=== PATIENT | male | born 1960 | race Caucasian/White ===

== ENCOUNTER 2018-06-29 17:46 | Inpatient (IN) | payer MEDICAID ==
[~2018-06-29] VITALS: Ht 175.3 cm; Wt 98.9 kg
--- NOTE | ~2018-06-29 | CN ---
PATIENT NAME:MARK HEARN MEDICAL RECORD: [id number] : 62 LOCATION:[facility].2308 ADMIT DATE: 06/29/18 ACCOUNT: [id number] CONSULTING PHYSICIAN: ALESIA CHEATHAM MD REFERRING PHYSICIAN: JOANNA LEUNG MD DATE OF CONSULTATION: 07/01/2018 PSYCHIATRIC CONSULTATION IDENTIFYING DATA: The patient is a 57-year-old and he is admitted to the intensive care unit on a voluntary basis. CHIEF COMPLAINT: None. HISTORY OF PRESENT ILLNESS: The patient got into an argument with some of his family members and tried to kill himself by taking or swallowing 6-7 razor blades. He was then brought to the hospital and admitted, and indeed he did have razor blades present in his abdomen, verified on x-ray. The transportation superintendent was able to retrieve two of them via endoscopy and he has passed several of the others without causing any significant bleeding so far, but apparently he still has one in his intestinal tract. The patient reports numerous depressive symptoms, impulsivity, mood lability, and a very extensive past psychiatric history. He has tried to harm himself many times. He has been hospitalized many times. He is followed on an outpatient basis by the [facility] in [place] and has an established diagnosis of bipolar disorder, for which he takes Seroquel and lithium. He was recently hospitalized at the [facility] in May of this year and underwent a series of ECT treatments. MENTAL STATUS EXAMINATION: The patient is awake; alert; and oriented to person, place, and somewhat to time and situation. His mood is depressed. His affect is constricted. Thought processes are circumstantial. He denies any current thoughts of harming himself, but does so after pausing and contemplating momentarily and then does so in a way that is not very reassuring. He denies that he would seek to harm others and he denies any overt psychotic symptoms. ASSESSMENT: 1. Foreign body ingestion. 2. Bipolar disorder, depressed phase. PLAN: At this time, I recommend inpatient psychiatric treatment. He should be transferred to an acute inpatient psychiatric unit when medically stabilized. His long-term prognosis is guarded. I do not see any evidence of overt psychosis. By way of additional information, the patient has been in the [facility] multiple times and is currently on parole for armed robbery. TRANSINT:[id number] Voice Confirmation ID: [id number] DOCUMENT ID: [id number] CONSULT REPORT [id number] MARK HEARN, ALESIA PACKER at 1333 CC: [id number] DICTATION DATE: 07/01/18 1111 CABLE MACHINE OPERATOR: 07/01/18 1229 ADM IN [place] [id number] [place] [address]
[~2018-06-29 17:46] MED LIST: ATIVAN1 MG PO; CLONAZEPAM2 MG/TAB PO; ED-SPAZ0.125 MG PO; HYDROCODONE-APA1 TAB PO; KLONOPIN1 MG PO; LITHIUM CARBON300 MG PO; MIRALAX17 GM PO; NICODERM C1 PATCH .3 TRANSDERM; PEPCID20 MG PO; PROTONIX40 MG PO; SEROQUEL300 MG PO; ZOFRAN ODT4 MG/UDTAB PO
[2018-06-29 18:17] LABS: APPEARANCE CLEAR (CLEAR); BILIRUBIN NEGATIVE (NEGATIVE); COLOR YELLOW (YELLOW); GLUCOSE NEGATIVE (NEGATIVE); KETONE NEGATIVE (NEGATIVE); NITRITE NEGATIVE (NEGATIVE); PROTEIN NEGATIVE (NEGATIVE); UROBILINOGEN NORMAL (NORMAL)
[2018-06-29 18:22] LABS: UDS - AMPHET NEGATIVE QUAL (NEGATIVE); UDS - BARB NEGATIVE QUAL (NEGATIVE); UDS - BENZO POSITIVE QUAL (NEGATIVE); UDS - COCAINE NEGATIVE QUAL (NEGATIVE); UDS - OPIATE NEGATIVE QUAL (NEGATIVE); UDS - PCP NEGATIVE QUAL (NEGATIVE); UDS - THC NEGATIVE QUAL (NEGATIVE)
[2018-06-29 18:42] LABS: BASOPHILS 0.9 % (0-2); EOSINOPHILS 6.1 % (0-7); HEMATOCRIT 41.3 % (42.0-54.0); HEMOGLOBIN 13.1 g/dL (13.5-17.5); IMMATURE GRANULOCYTES 0.5 % (0-5); LYMPHOCYTES 29.5 % (15-50); MCH 28.4 pg (26.0-34.0); MCHC 31.7 g/dL (31.0-37.0); MCV 89.6 fL (80.0-100.0); MEAN PLATELET VOLUME 9.5 fL (7.4-10.4); MONOCYTES 7.9 % (2-11); NEUTROPHILS 55.1 % (40-80); PLATELET COUNT 208 10x3/uL (130-400); RBC 4.61 10x6/uL (4.20-6.10); RDW 13.4 % (11.5-14.5); WBC 7.6 10x3/uL (4.8-10.8)
[2018-06-29 18:55] LABS: ALBUMIN 3.4 g/dL (3.4-5.0); ANION GAP 12.4 mmol/L (8-16); BILIRUBIN - TOTAL 0.16 mg/dL (0.2-1.3); CALCIUM 8.6 mg/dL (8.5-10.1); CARBON DIOXIDE 24.9 mmol/L (21.0-32.0); CREATININE - SERUM 1.1 mg/dL (0.6-1.3); POTASSIUM - SERUM 4.3 mmol/L (3.5-5.1); PROTEIN - SERUM 7.3 g/dL (6.4-8.2)
[2018-06-29 19:35] LABS: APTT 27.8 SECONDS (22.8-39.4); INR 0.97 (0.85-1.17); PROTIME 12.5 SECONDS (11.6-15.0)
[2018-06-29 22:00] VITALS: BP 115/69
[2018-06-29 22:09] VITALS: BP 114/60; BMI 31.7
[2018-06-29 23:00] VITALS: BP 141/94
[2018-06-29 23:32] LABS: HEMATOCRIT 39.8 % (42.0-54.0); HEMOGLOBIN 12.8 g/dL (13.5-17.5)
[2018-06-30] VITALS (14 sets, daily range): BP systolic 125–161; BP diastolic 78–99
[2018-06-30 07:32] LABS: BASOPHILS 0.4 % (0-2); EOSINOPHILS 3.3 % (0-7); HEMATOCRIT 37.2 % (42.0-54.0); HEMOGLOBIN 12.1 g/dL (13.5-17.5); IMMATURE GRANULOCYTES 0.6 % (0-5); LYMPHOCYTES 17.8 % (15-50); MCH 28.3 pg (26.0-34.0); MCHC 32.5 g/dL (31.0-37.0); MEAN PLATELET VOLUME 9.9 fL (7.4-10.4); MONOCYTES 8.6 % (2-11); NEUTROPHILS 69.3 % (40-80); PLATELET COUNT 181 10x3/uL (130-400); RBC 4.27 10x6/uL (4.20-6.10); RDW 13.5 % (11.5-14.5)
[2018-06-30 07:34] LABS: MCV 87.1 fL (80.0-100.0); WBC 10.4 10x3/uL (4.8-10.8)
[2018-06-30 07:42] LABS: CALC OSMOLALITY 280 mosm/kg (275-300); CALCIUM 7.8 mg/dL (8.5-10.1); CARBON DIOXIDE 25.4 mmol/L (21.0-32.0); CHLORIDE - SERUM 108 mmol/L (98-107); GLUCOSE 108 mg/dL (74-106); POTASSIUM - SERUM 4.4 mmol/L (3.5-5.1); SODIUM 141 mmol/L (136-145); UREA NITROGEN 11 mg/dL (7-18)
[2018-06-30 07:44] LABS: CREATININE - SERUM 0.8 mg/dL (0.6-1.3); eGFR NON AFRICAN AMERICAN > 90 mL/min (90-120)
[2018-07-01] MEDS ORDERED: PROPRANOLOL HCL20 MG PO (01:30)
[2018-07-01] MEDS ORDERED: PROTONIX20 MG PO (01:30)
[2018-07-01] MEDS ORDERED: REMERON15 MG/UDTA PO (01:31)
[2018-07-01] MEDS ORDERED: AMBIEN5 MG PO (01:31)
[2018-07-01] MEDS ORDERED: PRINIVIL20 MG PO (01:32)
[2018-07-01 07:00] VITALS: BP 143/101
[2018-07-01 09:53] LABS: BASOPHILS 0.4 % (0-2); EOSINOPHILS 3.8 % (0-7); HEMATOCRIT 38.4 % (42.0-54.0); HEMOGLOBIN 12.3 g/dL (13.5-17.5); IMMATURE GRANULOCYTES 0.5 % (0-5); LYMPHOCYTES 22.3 % (15-50); MCH 28.6 pg (26.0-34.0); MCV 89.3 fL (80.0-100.0); MEAN PLATELET VOLUME 9.7 fL (7.4-10.4); MONOCYTES 7.6 % (2-11); NEUTROPHILS 65.4 % (40-80); PLATELET COUNT 165 10x3/uL (130-400); RDW 13.5 % (11.5-14.5); WBC 7.4 10x3/uL (4.8-10.8)
[2018-07-01 10:00] LABS: CALC OSMOLALITY 280 mosm/kg (275-300); CARBON DIOXIDE 26.8 mmol/L (21.0-32.0); CHLORIDE - SERUM 108 mmol/L (98-107); CREATININE - SERUM 0.9 mg/dL (0.6-1.3); GLUCOSE 108 mg/dL (74-106); POTASSIUM - SERUM 4.1 mmol/L (3.5-5.1); SODIUM 142 mmol/L (136-145); UREA NITROGEN 5 mg/dL (7-18); eGFR NON AFRICAN AMERICAN > 90 mL/min (90-120)
[2018-07-01 11:43] VITALS: BP 165/100
[2018-07-01 18:45] VITALS: BP 145/93
[2018-07-01 19:00] VITALS: BP 147/98
[2018-07-01 23:00] VITALS: BP 153/100
[2018-07-02] VITALS (7 sets, daily range): BP systolic 123–153; BP diastolic 74–97; Ht 175.3 cm; Wt 98.9 kg
[2018-07-02 03:46] LABS: BASOPHILS 0.4 % (0-2); EOSINOPHILS 4.8 % (0-7); HEMATOCRIT 37.4 % (42.0-54.0); HEMOGLOBIN 12.1 g/dL (13.5-17.5); IMMATURE GRANULOCYTES 0.3 % (0-5); LYMPHOCYTES 23.3 % (15-50); MCH 28.2 pg (26.0-34.0); MCHC 32.4 g/dL (31.0-37.0); MEAN PLATELET VOLUME 9.3 fL (7.4-10.4); MONOCYTES 9.6 % (2-11); NEUTROPHILS 61.6 % (40-80); RBC 4.29 10x6/uL (4.20-6.10); RDW 13.4 % (11.5-14.5); WBC 7.9 10x3/uL (4.8-10.8)
[2018-07-02 03:48] LABS: MCV 87.2 fL (80.0-100.0); PLATELET COUNT 200 10x3/uL (130-400)
[2018-07-02 04:04] LABS: CALC OSMOLALITY 275 mosm/kg (275-300); CALCIUM 8.1 mg/dL (8.5-10.1); CARBON DIOXIDE 24.2 mmol/L (21.0-32.0); CHLORIDE - SERUM 107 mmol/L (98-107); CREATININE - SERUM 0.9 mg/dL (0.6-1.3); GLUCOSE 107 mg/dL (74-106); SODIUM 140 mmol/L (136-145); UREA NITROGEN 4 mg/dL (7-18); eGFR NON AFRICAN AMERICAN > 90 mL/min (90-120)
[2018-07-03] VITALS (9 sets, daily range): BP systolic 124–160; BP diastolic 78–109
[2018-07-03 04:32] LABS: BASOPHILS 0.3 % (0-2); EOSINOPHILS 7.3 % (0-7); HEMATOCRIT 35.4 % (42.0-54.0); HEMOGLOBIN 11.5 g/dL (13.5-17.5); IMMATURE GRANULOCYTES 0.5 % (0-5); LYMPHOCYTES 32.4 % (15-50); MCH 28.5 pg (26.0-34.0); MCHC 32.5 g/dL (31.0-37.0); MCV 87.6 fL (80.0-100.0); MEAN PLATELET VOLUME 9.5 fL (7.4-10.4); MONOCYTES 13.4 % (2-11); NEUTROPHILS 46.1 % (40-80); PLATELET COUNT 183 10x3/uL (130-400); RBC 4.04 10x6/uL (4.20-6.10); RDW 13.5 % (11.5-14.5)
[2018-07-03 05:03] LABS: ANION GAP 9.2 mmol/L (8-16); CALCIUM 8.2 mg/dL (8.5-10.1); CARBON DIOXIDE 25.5 mmol/L (21.0-32.0); CREATININE - SERUM 1.1 mg/dL (0.6-1.3); POTASSIUM - SERUM 3.7 mmol/L (3.5-5.1)
[2018-07-03 07:32] LABS: HEPATITIS C ANTIBODY >11.0 (0.0-0.9)
[2018-07-04 04:24] VITALS: BP 140/85
[2018-07-04 07:00] VITALS: BP 129/84
[2018-07-04 11:00] VITALS: BP 126/83
[2018-07-04 15:00] VITALS: BP 126/83
[2018-07-04 19:00] VITALS: BP 161/101
[2018-07-04 23:00] VITALS: BP 150/96
[2018-07-05] VITALS (8 sets, daily range): BP systolic 99–157; BP diastolic 58–107
[2018-07-06 03:00] VITALS: BP 126/84
[2018-07-06 07:00] VITALS: BP 120/90
[2018-07-06 09:00] VITALS: BP 120/90
== END 2018-07-06 16:36 | disposition left against medical advice (07) | DRG 395 ==
LOC: D.ER 17:46 → D.EDHOLD 19:12 → D.ICU 19:12 → D.CVICU 19:12 → OBSVTIME 22:00 → D.ICU 06-30 15:35
PROVIDERS: Family Medicine; Internal Medicine Gastroenterology; Internal Medicine Nephrology
PROC: 0DC68ZZ Extirpation of Matter from Stomach, Via Natural or Artificial Opening Endoscopic (ICD-10-PCS; principal; 2018-06-29 17:30)
DX: T18.2XXA Foreign body in stomach, initial encounter (principal); T14.91XA Suicide attempt, initial encounter; X83.8XXA Intentional self-harm by other specified means, initial encounter; K44.9 Diaphragmatic hernia without obstruction or gangrene; F31.9 Bipolar disorder, unspecified; I10 Essential (primary) hypertension

== ENCOUNTER 2018-11-30 15:34 | Inpatient (IN) | payer MEDICAID ==
[~2018-11-30] VITALS: Ht 175.3 cm; Wt 89.1 kg
[~2018-11-30 15:34] MED LIST changes: +AMBIEN5 MG PO; +PRINIVIL20 MG PO; +PROPRANOLOL HCL20 MG PO; +PROTONIX20 MG PO; +REMERON15 MG/UDTA PO
[2018-11-30 16:25] LABS: BASOPHILS 0.9 % (0-2); EOSINOPHILS 4.5 % (0-7); HEMATOCRIT 40.1 % (42.0-54.0); HEMOGLOBIN 12.7 g/dL (13.5-17.5); IMMATURE GRANULOCYTES 0.5 % (0-5); LYMPHOCYTES 30.4 % (15-50); MCH 25.7 pg (26.0-34.0); MCHC 31.7 g/dL (31.0-37.0); MCV 81.2 fL (80.0-100.0); MONOCYTES 9.5 % (2-11); NEUTROPHILS 54.2 % (40-80); PLATELET COUNT 206 10x3/uL (130-400); RBC 4.94 10x6/uL (4.20-6.10); RDW 14.4 % (11.5-14.5); WBC 6.6 10x3/uL (4.8-10.8)
[2018-11-30 16:57] LABS: ALBUMIN 3.9 g/dL (3.4-5.0); ANION GAP 16.5 mmol/L (8-16); BILIRUBIN - TOTAL 0.35 mg/dL (0.2-1.3); CALCIUM 9.5 mg/dL (8.5-10.1); CARBON DIOXIDE 22.7 mmol/L (21.0-32.0); CREATININE - SERUM 1.1 mg/dL (0.6-1.3); MAGNESIUM - SERUM 1.8 mg/dL (1.8-2.4); POTASSIUM - SERUM 4.2 mmol/L (3.5-5.1); PROTEIN - SERUM 8.2 g/dL (6.4-8.2)
[2018-11-30 17:02] LABS: UDS - AMPHET NEGATIVE QUAL (NEGATIVE); UDS - BARB POSITIVE QUAL (NEGATIVE); UDS - BENZO NEGATIVE QUAL (NEGATIVE); UDS - COCAINE NEGATIVE QUAL (NEGATIVE); UDS - OPIATE NEGATIVE QUAL (NEGATIVE); UDS - PCP NEGATIVE QUAL (NEGATIVE); UDS - THC NEGATIVE QUAL (NEGATIVE)
[2018-11-30 17:05] LABS: APPEARANCE CLEAR (CLEAR); BILIRUBIN NEGATIVE (NEGATIVE); COLOR YELLOW (YELLOW); GLUCOSE NEGATIVE (NEGATIVE); KETONE NEGATIVE (NEGATIVE); NITRITE NEGATIVE (NEGATIVE); PROTEIN NEGATIVE (NEGATIVE); SPECIFIC GRAVITY 1.015 (1.005-1.020); UROBILINOGEN NORMAL (NORMAL)
[2018-11-30 20:00] VITALS: BP 125/87
[2018-11-30 20:15] VITALS: BP 125/87
[2018-11-30 21:00] VITALS: BP 129/81
[2018-11-30 22:00] VITALS: BP 121/87
[2018-11-30] MEDS ORDERED: TRAZODONE HCL150 MG PO (22:43)
[2018-11-30 23:00] VITALS: BP 117/79
[2018-12-01] VITALS (20 sets, daily range): BP systolic 94–142; BP diastolic 55–94; BMI 31.1
[2018-12-01 04:01] LABS: BASOPHILS 0.6 % (0-2); EOSINOPHILS 3.5 % (0-7); HEMATOCRIT 38.3 % (42.0-54.0); HEMOGLOBIN 12.2 g/dL (13.5-17.5); IMMATURE GRANULOCYTES 0.5 % (0-5); LYMPHOCYTES 22.8 % (15-50); MCHC 31.9 g/dL (31.0-37.0); MCV 81.7 fL (80.0-100.0); MEAN PLATELET VOLUME 9.7 fL (7.4-10.4); MONOCYTES 9.7 % (2-11); NEUTROPHILS 62.9 % (40-80); PLATELET COUNT 213 10x3/uL (130-400); RBC 4.69 10x6/uL (4.20-6.10); RDW 14.4 % (11.5-14.5); WBC 8.2 10x3/uL (4.8-10.8)
[2018-12-01 04:11] LABS: APTT 32.8 SECONDS (22.8-39.4); INR 1.13 (0.85-1.17)
[2018-12-01 04:16] LABS: ANION GAP 15.8 mmol/L (8-16); CALCIUM 8.4 mg/dL (8.5-10.1); CREATININE - SERUM 1.1 mg/dL (0.6-1.3); POTASSIUM - SERUM 3.8 mmol/L (3.5-5.1)
[2018-12-02] VITALS (12 sets, daily range): BP systolic 88–138; BP diastolic 55–99; Ht 175.3 cm; Wt 89.1 kg
[2018-12-02 03:18] LABS: BASOPHILS 0.7 % (0-2); EOSINOPHILS 6.1 % (0-7); HEMATOCRIT 36.9 % (42.0-54.0); HEMOGLOBIN 11.4 g/dL (13.5-17.5); IMMATURE GRANULOCYTES 0.4 % (0-5); MCH 25.2 pg (26.0-34.0); MCHC 30.9 g/dL (31.0-37.0); MCV 81.6 fL (80.0-100.0); MEAN PLATELET VOLUME 9.5 fL (7.4-10.4); NEUTROPHILS 42.8 % (40-80); PLATELET COUNT 189 10x3/uL (130-400); RBC 4.52 10x6/uL (4.20-6.10); RDW 14.1 % (11.5-14.5)
[2018-12-02 03:27] LABS: WBC 5.4 10x3/uL (4.8-10.8)
[2018-12-02 03:36] LABS: CALC OSMOLALITY 271 mosm/kg (275-300); CALCIUM 7.9 mg/dL (8.5-10.1); CARBON DIOXIDE 21.1 mmol/L (21.0-32.0); CHLORIDE - SERUM 104 mmol/L (98-107); GLUCOSE 100 mg/dL (74-106); POTASSIUM - SERUM 3.7 mmol/L (3.5-5.1); SODIUM 136 mmol/L (136-145); UREA NITROGEN 13 mg/dL (7-18); eGFR NON AFRICAN AMERICAN 82 mL/min (90-120)
--- NOTE | 2018-12-02 13:57 | CN ---
PATIENT NAME:MARK HEARN MEDICAL RECORD: [id number] : 62 LOCATION:CHACH[facility].2307 ADMIT DATE: 11/30/18 ACCOUNT: [id number] CONSULTING PHYSICIAN: ALESIA CHEATHAM MD REFERRING PHYSICIAN: JOANNA LEUNG MD DATE OF CONSULTATION: 12/01/2018 IDENTIFYING DATA: The patient is 58 years old and he is admitted to the hospital on a voluntary basis. CHIEF COMPLAINT: Foreign body ingestion. HISTORY OF PRESENT ILLNESS: The patient has a long history of mental illness. He has been hearing voices the past several days, telling him to kill himself. He apparently swallowed a number of razor blades. I am not sure how he managed to get to the hospital or come to the attention of the medical authorities, but he underwent an emergency EGD and 4 of the blades were extracted. Apparently, still has a foreign body in his abdomen based on x-ray. The patient denies he wants to hurt himself now. Says, he is not currently hearing voices. He does have a flat affect. MENTAL STATUS EXAMINATION: The patient is awake, alert and oriented to person, place, time and situation. His mood is depressed. His affect is constricted. Thought processes are circumstantial. Memory, concentration, and abstraction abilities are moderately impaired. He denies he would currently seek to harm himself or others and denies current psychotic symptoms. ASSESSMENT: 1. Bipolar disorder, depressed phase. 2. Foreign body ingestion. PLAN: The patient has a long history of mental illness and is going to need inpatient psychiatric care once medically stabilized. He is agreeable to this. I have reviewed his current scheduled psychoactive medications and have discussed them with the patient. They will be maintained. I am going to order marco Linares to go with the as needed Ativan in case there are intermittent behavior problems. He should remain in ICU so that he can be closely observed, and once he has passed the razor blade that is currently in his abdomen, I would recommend transferring him, as I said, to inpatient adult psychiatric care. TRANSINT:[id number] Voice Confirmation ID: [id number] DOCUMENT ID: [id number] ALESIA CHEATHAM MD at 1350 CC: [id number] DICTATION DATE: 12/01/18 1057 SERGING MACHINE OPERATOR AUTOMATIC: 12/01/18 1127 ADM IN [facility] [address] [place] [id number]
[2018-12-03] VITALS (16 sets, daily range): BP systolic 90–167; BP diastolic 47–100
[2018-12-03 04:17] LABS: BASOPHILS 0.8 % (0-2); HEMATOCRIT 36.5 % (42.0-54.0); HEMOGLOBIN 11.5 g/dL (13.5-17.5); IMMATURE GRANULOCYTES 0.4 % (0-5); LYMPHOCYTES 43.6 % (15-50); MCH 25.6 pg (26.0-34.0); MCHC 31.5 g/dL (31.0-37.0); MCV 81.1 fL (80.0-100.0); MEAN PLATELET VOLUME 9.6 fL (7.4-10.4); MONOCYTES 11.4 % (2-11); NEUTROPHILS 34.8 % (40-80); PLATELET COUNT 195 10x3/uL (130-400); WBC 4.9 10x3/uL (4.8-10.8)
[2018-12-03 04:28] LABS: CALC OSMOLALITY 274 mosm/kg (275-300); CALCIUM 8.1 mg/dL (8.5-10.1); CARBON DIOXIDE 23.5 mmol/L (21.0-32.0); CHLORIDE - SERUM 104 mmol/L (98-107); CREATININE - SERUM 0.9 mg/dL (0.6-1.3); GLUCOSE 98 mg/dL (74-106); POTASSIUM - SERUM 3.8 mmol/L (3.5-5.1); SODIUM 138 mmol/L (136-145); eGFR NON AFRICAN AMERICAN > 90 mL/min (90-120)
[2018-12-03 04:36] LABS: UREA NITROGEN 9 mg/dL (7-18)
--- NOTE | 2018-12-03 18:16 | MORECARE ---
CASE MANAGEMENT DISCHARGE SUMMARY PATIENT: MARK HEARN UNIT: [id number] ADM DATE: 11/30/18 AGE: 58 : 62 SEX: M ROOM/BED: D.2307 AUTHOR: MILTON ROBERTSON PHYSICIAN: REFERRING PHYSICIAN: JOANNA LEUNG MD DATE OF SERVICE: 12/03/18 Discharge Plan Patient Name: MARK HEARN Facility: [facility]:[place] : 1960 Planned Disposition: Psych facility Anticipated Discharge Date: Discharge Date: Expected LOS: Initial Reviewer: [email or web address] Initial Review Date: 11/30/2018 Generated: 12/03/18 7:15 pm Comments DCP- Discharge Planning Updated by [email or web address]: Carly Brar on 12/03/18 5:[address] Patient Name: MARK HEARN Admission Status: ER Accout number: [id number] Admission Date: 11-30-2018 : 1960 Admission Diagnosis: Attending: JOANNA LEUNG Current LOS: 3 Anticipated DC Date: Planned Disposition: Psych facility Primary Insurance: MEDICAID [place] Discharge Planning Comments: CM notified that patient is now medically cleared for Inpatient Psychiatric care. CM notified transfer center and faxed records. CM awaiting for placement acceptance. CM will continue to follow and assist as needed with discharge planning / needs. Lip Cutter And Scorer: Carly Brar External Providers External Provider: [facility] Next Contact Date: Service Request Date: Service Type: Resolution: Reviewer: Comments: Patient Name: MARK HEARN Page 29004 at 1816 All edits/amendments must be made on the electronic document DICTATION DATE: 12/03/181814 MANAGED CARE DIRECTOR: LY 12/03/181814 RPT#: [id number] DC DATE: STATUS: ADM IN [facility] [address] [place] [address] END OF REPORT
[2018-12-04] VITALS (14 sets, daily range): BP systolic 91–136; BP diastolic 58–95
[2018-12-05 03:00] VITALS: BP 113/77
[2018-12-05 07:00] VITALS: BP 122/87
[2018-12-05 07:23] LABS: BASOPHILS 0.5 % (0-2); EOSINOPHILS 7.3 % (0-7); HEMATOCRIT 37.3 % (42.0-54.0); HEMOGLOBIN 11.9 g/dL (13.5-17.5); IMMATURE GRANULOCYTES 0.4 % (0-5); LYMPHOCYTES 35.8 % (15-50); MCH 25.8 pg (26.0-34.0); MCHC 31.9 g/dL (31.0-37.0); MCV 80.9 fL (80.0-100.0); MEAN PLATELET VOLUME 9.9 fL (7.4-10.4); MONOCYTES 9.4 % (2-11); NEUTROPHILS 46.6 % (40-80); PLATELET COUNT 198 10x3/uL (130-400); RBC 4.61 10x6/uL (4.20-6.10); RDW 14.3 % (11.5-14.5); WBC 5.6 10x3/uL (4.8-10.8)
[2018-12-05 07:38] LABS: ALBUMIN 3.3 g/dL (3.4-5.0); ALKALINE PHOSPHATASE 67 U/L (46-116); ALT (SGPT) 19 U/L (10-68); CALC OSMOLALITY 273 mosm/kg (275-300); CALCIUM 8.6 mg/dL (8.5-10.1); CARBON DIOXIDE 22.6 mmol/L (21.0-32.0); CHLORIDE - SERUM 104 mmol/L (98-107); CREATININE - SERUM 0.9 mg/dL (0.6-1.3); GLUCOSE 102 mg/dL (74-106); POTASSIUM - SERUM 3.7 mmol/L (3.5-5.1); PROTEIN - SERUM 7.4 g/dL (6.4-8.2); SODIUM 138 mmol/L (136-145); UREA NITROGEN 8 mg/dL (7-18); eGFR NON AFRICAN AMERICAN > 90 mL/min (90-120)
[2018-12-05 11:00] VITALS: BP 113/81
[2018-12-05 19:00] VITALS: BP 125/86
[2018-12-05 23:00] VITALS: BP 124/85
[2018-12-06 03:00] VITALS: BP 130/79
[2018-12-06 04:26] LABS: BASOPHILS 0.7 % (0-2); EOSINOPHILS 8.1 % (0-7); HEMATOCRIT 38.5 % (42.0-54.0); HEMOGLOBIN 12.2 g/dL (13.5-17.5); IMMATURE GRANULOCYTES 0.4 % (0-5); LYMPHOCYTES 39.9 % (15-50); MCH 25.9 pg (26.0-34.0); MCHC 31.7 g/dL (31.0-37.0); MCV 81.7 fL (80.0-100.0); MONOCYTES 9.8 % (2-11); NEUTROPHILS 41.1 % (40-80); PLATELET COUNT 201 10x3/uL (130-400); RBC 4.71 10x6/uL (4.20-6.10); RDW 14.2 % (11.5-14.5); WBC 5.4 10x3/uL (4.8-10.8)
[2018-12-06 04:45] LABS: ALBUMIN 3.4 g/dL (3.4-5.0); ANION GAP 17.2 mmol/L (8-16); BILIRUBIN - TOTAL 0.23 mg/dL (0.2-1.3); CALCIUM 8.6 mg/dL (8.5-10.1); CARBON DIOXIDE 20.6 mmol/L (21.0-32.0); CREATININE - SERUM 1.2 mg/dL (0.6-1.3); POTASSIUM - SERUM 3.8 mmol/L (3.5-5.1); PROTEIN - SERUM 7.5 g/dL (6.4-8.2)
[2018-12-06 07:00] VITALS: BP 113/93
[2018-12-06 19:00] VITALS: BP 110/82
--- NOTE | 2018-12-06 22:45 | MORECARE ---
CASE MANAGEMENT DISCHARGE SUMMARY PATIENT: MARK HEARN UNIT: [id number] ADM DATE: 11/30/18 AGE: 58 : 62 SEX: M ROOM/BED: D.2307 AUTHOR: MILTON ROBERTSON PHYSICIAN: REFERRING PHYSICIAN: JOANNA LEUNG MD DATE OF SERVICE: 12/06/18 Discharge Plan Patient Name: MARK HEARN [facility] : 1960 Planned Disposition: Psych facility Anticipated Discharge Date: Discharge Date: Expected LOS: Initial Reviewer: [email or web address] Initial Review Date: 11/30/2018 Generated: 12/06/18 11:45 pm Comments DCP- Discharge Planning Updated by [email or web address]: Carly Brar on 12/06/18 9:[address] CM CALLED AND FAXED CLINCIALS TO TRANSFER CENTER FOR PYSCH PLACEMENT LAST RAZORBLADE PASSED TODAY. CM WILL CONTINUE TO FOLLOW AND ASSIST IN D/C PLANNING DCP- Discharge Planning Updated by [email or web address]: Carly Brar on 12/03/18 5:[address] Patient Name: MARK HEARN Admission Status: ER Accout number: [id number] Admission Date: 11-30-2018 : 1960 Admission Diagnosis: Attending: JOANNA LEUNG Current LOS: 3 Anticipated DC Date: Planned Disposition: Psych facility Primary Insurance: MEDICAID [place] Discharge Planning Comments: CM notified that patient is now medically cleared for Inpatient Psychiatric care. CM notified transfer center and faxed records. CM awaiting for placement acceptance. CM will continue to follow and assist as needed with discharge planning / needs. Skidway Worker: Carly Brar Last DP export: 12/03/18 5:15 p Patient Name: MARK HEARN Page 25504 at 9787 All edits/amendments must be made on the electronic document DICTATION DATE: 12/06/182244 BATTALION FIRE CHIEF: LY 12/06/182244 RPT#: [id number] DC DATE: STATUS: ADM IN [place] [id number] [place] [address] END OF REPORT
[2018-12-07 15:00] VITALS: BP 125/96
[2018-12-08 07:00] VITALS: BP 128/78
[2018-12-08 08:51] VITALS: BP 132/78
[2018-12-08 11:00] VITALS: BP 136/84
[2018-12-08 15:00] VITALS: BP 128/71
[2018-12-08 17:34] LABS: BASOPHILS 0.9 % (0-2); HEMATOCRIT 37.9 % (42.0-54.0); HEMOGLOBIN 12.2 g/dL (13.5-17.5); IMMATURE GRANULOCYTES 0.5 % (0-5); LYMPHOCYTES 46.2 % (15-50); MCHC 32.2 g/dL (31.0-37.0); MCV 80.6 fL (80.0-100.0); MEAN PLATELET VOLUME 9.9 fL (7.4-10.4); MONOCYTES 10.9 % (2-11); NEUTROPHILS 33.5 % (40-80); PLATELET COUNT 181 10x3/uL (130-400); RDW 14.1 % (11.5-14.5); WBC 5.6 10x3/uL (4.8-10.8)
--- NOTE | 2018-12-08 18:30 | MORECARE ---
CASE MANAGEMENT DISCHARGE SUMMARY PATIENT: MARK HEARN UNIT: [id number] ADM DATE: 11/30/18 AGE: 58 : 62 SEX: M ROOM/BED: D.2307 AUTHOR: MILTON ROBERTSON PHYSICIAN: REFERRING PHYSICIAN: JOANNA LEUNG MD DATE OF SERVICE: 12/08/18 Discharge Plan Patient Name: MARK HEARN Facility: [facility]:[place] : 1960 Planned Disposition: Psych facility Anticipated Discharge Date: 12/08/18 Discharge Date: Expected LOS: 8 Initial Reviewer: [email or web address] Initial Review Date: 11/30/2018 Generated: 12/08/18 7:30 pm Comments DCP- Discharge Planning Updated by [email or web address]: Carly Brar on 12/06/18 9:[address] CM CALLED AND FAXED CLINCIALS TO TRANSFER CENTER FOR PYSCH PLACEMENT LAST RAZORBLADE PASSED TODAY. CM WILL CONTINUE TO FOLLOW AND ASSIST IN D/C PLANNING DCP- Discharge Planning Updated by [email or web address]: Carly Brar on 12/03/18 5:[address] Patient Name: MARK HEARN Admission Status: ER Accout number: [id number] Admission Date: 11-30-2018 : 1960 Admission Diagnosis: Attending: JOANNA LEUNG Current LOS: 3 Anticipated DC Date: Planned Disposition: Psych facility Primary Insurance: MEDICAID [place] Discharge Planning Comments: CM notified that patient is now medically cleared for Inpatient Psychiatric care. CM notified transfer center and faxed records. CM awaiting for placement acceptance. CM will continue to follow and assist as needed with discharge planning / needs. Framing And Hanging: Carly Brar Last DP export: 12/06/18 9:45 p Patient Name: MARK HEARN Page 20186 at 1830 All edits/amendments must be made on the electronic document DICTATION DATE: 12/08/181829 UTILITY AIDE: LY 12/08/181829 RPT#: [id number] DC DATE: STATUS: ADM IN [facility] [address] [facility] [place] [address] END OF REPORT
--- NOTE | 2018-12-08 18:37 | MORECARE ---
CASE MANAGEMENT DISCHARGE SUMMARY PATIENT: MARK HEARN UNIT: [id number] ADM DATE: 11/30/18 AGE: 58 : 62 SEX: M ROOM/BED: D.2307 AUTHOR: MARCELO,DOC PHYSICIAN: REFERRING PHYSICIAN: JOANNA LEUNG MD DATE OF SERVICE: 12/08/18 Discharge Plan Patient Name: MARK HEARN Facility: [facility]:[place] : 1960 Planned Disposition: Psych facility Anticipated Discharge Date: 12/08/18 Discharge Date: Expected LOS: 8 Initial Reviewer: [email or web address] Initial Review Date: 11/30/2018 Generated: 12/08/18 7:36 pm Comments DCP- Discharge Planning Updated by [email or web address]: Viky Paul on 12/08/18 5:[address] 1800 RECEIVED TELEPHONE CALL FROM PRIMARY NURSE. PATIENT HAS BEEN ACCEPTED TO [facility] IN [place], [place] BY DR SP MOTT. HE IS TO BE ADMITTED TO [address] [place] [address]/ CONTACT PHONE NUMBER [phone]. TC TO [facility]. CM SPOKE WITH CHAITANYA AT [facility]. HE WILL ADVISE HIS CONVENTION MANAGER AND THE ONCOMING SHIFT. PCS FORM COMPLETED AND GIVEN TO THE NURSE. THERE ARE 3 PATIENT TRANSFERS AHEAD OF THIS PATIENT. ONE WAY TRANSPORT IS 4 HRS. IT WILL LIKELY BE 4-5 HOURS BEFORE [facility] CAN TRANSPORT THE PATIENT. CM ADVISED THE NURSE AND THE NURSING CONVENTION MANAGER. DCP- Discharge Planning Updated by [email or web address]: Carly Brar on 12/06/18 9:[address] CM CALLED AND FAXED CLINCIALS TO TRANSFER CENTER FOR PYSCH PLACEMENT LAST RAZORBLADE PASSED TODAY. CM WILL CONTINUE TO FOLLOW AND ASSIST IN D/C PLANNING DCP- Discharge Planning Updated by [email or web address]: Carly Brar on 12/03/18 5:[address] Patient Name: MARK HEARN Admission Status: ER Accout number: [id number] Admission Date: 11-30-2018 : 1960 Admission Diagnosis: Attending: JOANNA LEUNG Current LOS: 3 Anticipated DC Date: Planned Disposition: Psych facility Primary Insurance: MEDICAID [place] Discharge Planning Comments: CM notified that patient is now medically cleared for Inpatient Psychiatric care. CM notified transfer center and faxed records. CM awaiting for placement acceptance. CM will continue to follow and assist as needed with discharge planning / needs. Disability Manager: Carly Simmons DP export: 12/08/18 5:30 p Patient Name: MARK HEARN Page 54247 at 1837 All edits/amendments must be made on the electronic document DICTATION DATE: 12/08/181835 SUBSTATION DESIGN DRAFTSPERSON: LY 12/08/181835 RPT#: [id number] DC DATE: STATUS: ADM IN [facility] [address] [place] [address] END OF REPORT
[2018-12-09 16:38] VITALS: BP 164/121
[2018-12-09 18:00] VITALS: BP 143/91
[2018-12-09 19:00] VITALS: BP 139/95
[2018-12-09 23:00] VITALS: BP 132/66
[2018-12-10 03:00] VITALS: BP 106/74
[2018-12-10 16:59] VITALS: BP 121/81
[2018-12-10 19:00] VITALS: BP 126/88
--- NOTE | 2018-12-10 19:25 | MORECARE ---
CASE MANAGEMENT DISCHARGE SUMMARY PATIENT: MARK HEARN UNIT: [id number] ADM DATE: 11/30/18 AGE: 58 : 62 SEX: M ROOM/BED: D.2307 AUTHOR: MARCELO,DOC PHYSICIAN: REFERRING PHYSICIAN: JOANNA LEUNG MD DATE OF SERVICE: 12/10/18 Discharge Plan Patient Name: MARK HEARN Facility: [facility]:[place] : 1960 Planned Disposition: Psych facility Anticipated Discharge Date: 12/08/18 Discharge Date: Expected LOS: 8 Initial Reviewer: [email or web address] Initial Review Date: 11/30/2018 Generated: 12/10/18 8:25 pm Comments DCP- Discharge Planning Updated by [email or web address]: Carly Brar on 12/10/18 6:[address] CM received notice that patient has been denied placement for psych d/t a supposed felony warrant? CM contacted [facility] and spoke with Lyric received a number to call to [facility] in [facility] [phone] spoke with Giselle. Giselle stated that the [facility] has a waiting list and most of those patients are criminals that have already committed a crime. Giselle suggested [facility] in [place]. CM contacted transfer center to see if they had sent packet to [facility]. Transfer center stated that they had that patient was accepted to [facility] 12/08/18 and the case was closed. Transfer center contacted [facility] back to find out what happened. Transfer Center then contacted CM back and CM then sent new packet to Transfer Center for placement. CM will continue to follow and assist as needed with discharge planning / needs. DCP- Discharge Planning Updated by [email or web address]: Viky Humberto on 12/08/18 5:[address] 1800 RECEIVED TELEPHONE CALL FROM PRIMARY NURSE. PATIENT HAS BEEN ACCEPTED TO [facility] IN [place], [place] BY DR SP MOTT. HE IS TO BE ADMITTED TO [address] [place] [address]/ CONTACT PHONE NUMBER [phone]. TC TO [facility]. CM SPOKE WITH CHAITANYA AT [facility]. HE WILL ADVISE HIS PRINTED CIRCUIT BOARDS BEVELER AND THE ONCOMING SHIFT. PCS FORM COMPLETED AND GIVEN TO THE NURSE. THERE ARE 3 PATIENT TRANSFERS AHEAD OF THIS PATIENT. ONE WAY TRANSPORT IS 4 HRS. IT WILL LIKELY BE 4-5 HOURS BEFORE [facility] CAN TRANSPORT THE PATIENT. CM ADVISED THE NURSE AND THE NURSING PRINTED CIRCUIT BOARDS BEVELER. DCP- Discharge Planning Updated by [email or web address]: Carly Brar on 12/06/18 9:[address] CM CALLED AND FAXED CLINCIALS TO TRANSFER CENTER FOR PYSCH PLACEMENT LAST RAZORBLADE PASSED TODAY. CM WILL CONTINUE TO FOLLOW AND ASSIST IN D/C PLANNING DCP- Discharge Planning Updated by [email or web address]: Carly Brar on 12/03/18 5:[address] Patient Name: MARK HEARN Admission Status: ER Accout number: [id number] Admission Date: 11-30-2018 : 1960 Admission Diagnosis: Attending: JOANNA LEUNG Current LOS: 3 Anticipated DC Date: Planned Disposition: [facility] facility Primary Insurance: MEDICAID [place] Discharge Planning Comments: CM notified that patient is now medically cleared for Inpatient Psychiatric care. CM notified transfer center and faxed records. CM awaiting for placement acceptance. CM will continue to follow and assist as needed with discharge planning / needs. Periodicals Library Assistant: Carly Brar Last DP export: 12/08/18 5:36 p Patient Name: MARK HEARN Page 13032 at 1925 All edits/amendments must be made on the electronic document DICTATION DATE: 12/10/181924 ASSISTANT INFANT TODDLER TEACHER: LY 12/10/181924 RPT#: [id number] DC DATE: STATUS: ADM IN [place] [address] [place] [address] END OF REPORT
[2018-12-10 23:00] VITALS: BP 118/77
[2018-12-11 01:00] VITALS: BP 109/75
[2018-12-11 04:30] VITALS: BP 102/63
--- NOTE | 2018-12-11 16:42 | MORECARE ---
CASE MANAGEMENT DISCHARGE SUMMARY PATIENT: MARK HEARN UNIT: [id number] ADM DATE: 11/30/18 AGE: 58 : 62 SEX: M ROOM/BED: D.2307 AUTHOR: MARCELO,DOC PHYSICIAN: REFERRING PHYSICIAN: JOANNA LEUNG MD DATE OF SERVICE: 12/11/18 Discharge Plan Patient Name: MARK HEARN Facility: [facility]:[place] : 1960 Planned Disposition: Psych facility Anticipated Discharge Date: 12/08/18 Discharge Date: 12/11/2018 Expected LOS: 8 Initial Reviewer: [email or web address] Initial Review Date: 11/30/2018 Generated: 12/11/18 5:42 pm Comments DCP- Discharge Planning Updated by [email or web address]: Carly Maykel on 12/10/18 6:[address] CM received notice that patient has been denied placement for psych d/t a supposed felony warrant? CM contacted [facility] and spoke with Lyric received a number to call to [facility] in [facility] [phone] spoke with Giselle. Giselle stated that the [facility] has a waiting list and most of those patients are criminals that have already committed a crime. Giselle suggested [facility] in [place]. CM contacted transfer center to see if they had sent packet to [facility]. Transfer center stated that they had that patient was accepted to [facility] 12/08/18 and the case was closed. Transfer center contacted [facility] back to find out what happened. Transfer Center then contacted CM back and CM then sent new packet to Transfer Center for placement. CM will continue to follow and assist as needed with discharge planning / needs. DCP- Discharge Planning Updated by [email or web address]: Viky Paul on 12/08/18 5:[address] 1800 RECEIVED TELEPHONE CALL FROM PRIMARY NURSE. PATIENT HAS BEEN ACCEPTED TO [facility] IN [place], [place] BY DR SP MOTT. HE IS TO BE ADMITTED TO [address] [place] [address]/ CONTACT PHONE NUMBER [phone]. TC TO [facility]. CM SPOKE WITH CHAITANYA AT [facility]. HE WILL ADVISE HIS DOCTOR OF CHIROPRACTIC AND THE ONCOMING SHIFT. PCS FORM COMPLETED AND GIVEN TO THE NURSE. THERE ARE 3 PATIENT TRANSFERS AHEAD OF THIS PATIENT. ONE WAY TRANSPORT IS 4 HRS. IT WILL LIKELY BE 4-5 HOURS BEFORE [facility] CAN TRANSPORT THE PATIENT. CM ADVISED THE NURSE AND THE NURSING DOCTOR OF CHIROPRACTIC. DCP- Discharge Planning Updated by [email or web address]: Carly Brar on 12/06/18 9:[address] CM CALLED AND FAXED CLINCIALS TO TRANSFER CENTER FOR PYSCH PLACEMENT LAST RAZORBLADE PASSED TODAY. CM WILL CONTINUE TO FOLLOW AND ASSIST IN D/C PLANNING DCP- Discharge Planning Updated by [email or web address]: Carly Brar on 12/03/18 5:[address] Patient Name: MARK HEARN Admission Status: ER Accout number: [id number] Admission Date: 11-30-2018 : 1960 Admission Diagnosis: Attending: JOANNA LEUNG Current LOS: 3 Anticipated DC Date: Planned Disposition: [facility] facility Primary Insurance: MEDICAID [place] Discharge Planning Comments: CM notified that patient is now medically cleared for Inpatient Psychiatric care. CM notified transfer center and faxed records. CM awaiting for placement acceptance. CM will continue to follow and assist as needed with discharge planning / needs. Inspector: Carly Simmons DP export: 12/10/18 6:25 p Patient Name: MARK HEARN Page 00352 at 1642 All edits/amendments must be made on the electronic document DICTATION DATE: 12/11/18 164 STATISTICAL ENGINEER: LY 12/11/18 1642 RPT#: [id number] DC DATE:12/11/18 STATUS: DIS IN [facility] [address] [place] [address] END OF REPORT
== END 2018-12-11 07:31 | DRG 393 ==
LOC: D.ER 15:34 → D.EDHOLD 17:56 → D.ICU 17:56
PROVIDERS: Family Medicine; Internal Medicine Gastroenterology; ADMIT Internal Medicine Nephrology
PROC: 0DC68ZZ Extirpation of Matter from Stomach, Via Natural or Artificial Opening Endoscopic (ICD-10-PCS; principal; 2018-11-30 17:45)
DX: T18.2XXA Foreign body in stomach, initial encounter (principal); R40.2214 Coma scale, best verbal response, none, 24 hours or more after hospital admission; R45.851 Suicidal ideations; T43.292A Poisoning by other antidepressants, intentional self-harm, initial encounter; F31.9 Bipolar disorder, unspecified; F20.9 Schizophrenia, unspecified; B19.20 Unspecified viral hepatitis C without hepatic coma; I10 Essential (primary) hypertension; K21.9 Gastro-esophageal reflux disease without esophagitis; D64.9 Anemia, unspecified; G89.29 Other chronic pain; K44.9 Diaphragmatic hernia without obstruction or gangrene; K29.70 Gastritis, unspecified, without bleeding; R40.2134 Coma scale, eyes open, to sound, 24 hours or more after hospital admission; R40.2364 Coma scale, best motor response, obeys commands, 24 hours or more after hospital admission

== ENCOUNTER 2019-03-22 18:12 | Emergency (ER) | payer MEDICAID ==
[~2019-03-22 18:12] MED LIST changes: +TRAZODONE HCL150 MG PO
[2019-03-22 18:28] VITALS: BMI 31.0
[2019-03-22] MEDS ORDERED: KLONOPIN1 MG PO (18:45)
[2019-03-22] MEDS ORDERED: NORVASC10 MG PO (18:45)
[2019-03-22 19:13] LABS: APPEARANCE CLEAR (CLEAR); BILIRUBIN NEGATIVE (NEGATIVE); COLOR YELLOW (YELLOW); GLUCOSE NEGATIVE (NEGATIVE); KETONE NEGATIVE (NEGATIVE); NITRITE NEGATIVE (NEGATIVE); PROTEIN NEGATIVE (NEGATIVE); SPECIFIC GRAVITY 1.025 (1.005-1.020); UROBILINOGEN NORMAL (NORMAL)
[2019-03-22 19:14] LABS: UDS - AMPHET NEGATIVE QUAL (NEGATIVE); UDS - BARB NEGATIVE QUAL (NEGATIVE); UDS - BENZO POSITIVE QUAL (NEGATIVE); UDS - COCAINE NEGATIVE QUAL (NEGATIVE); UDS - OPIATE NEGATIVE QUAL (NEGATIVE); UDS - PCP NEGATIVE QUAL (NEGATIVE); UDS - THC NEGATIVE QUAL (NEGATIVE)
[2019-03-22 20:19] LABS: BASOPHILS 0.6 % (0-2); HEMATOCRIT 38.4 % (42.0-54.0); HEMOGLOBIN 12.2 g/dL (13.5-17.5); IMMATURE GRANULOCYTES 0.4 % (0-5); LYMPHOCYTES 32.5 % (15-50); MCH 25.4 pg (26.0-34.0); MCHC 31.8 g/dL (31.0-37.0); MEAN PLATELET VOLUME 9.9 fL (7.4-10.4); MONOCYTES 7.6 % (2-11); NEUTROPHILS 53.9 % (40-80); RDW 14.1 % (11.5-14.5); WBC 7.1 10x3/uL (4.8-10.8)
[2019-03-22 20:20] LABS: APTT 20.9 SECONDS (22.8-39.4); INR 1.18 (0.85-1.17); PROTIME 14.5 SECONDS (11.6-15.0)
[2019-03-22 20:25] LABS: ALKALINE PHOSPHATASE 93 U/L (46-116); ALT (SGPT) 26 U/L (10-68); BILIRUBIN - TOTAL 0.23 mg/dL (0.2-1.3); CALC OSMOLALITY 284 mosm/kg (275-300); CALCIUM 9.2 mg/dL (8.5-10.1); CARBON DIOXIDE 20.7 mmol/L (21.0-32.0); CHLORIDE - SERUM 107 mmol/L (98-107); POTASSIUM - SERUM 4.1 mmol/L (3.5-5.1); PROTEIN - SERUM 8.2 g/dL (6.4-8.2); SODIUM 143 mmol/L (136-145); UREA NITROGEN 12 mg/dL (7-18); eGFR NON AFRICAN AMERICAN 82 mL/min (90-120)
[2019-03-22 20:26] LABS: GLUCOSE 102 mg/dL (74-106)
[2019-03-22 20:28] LABS: PLATELET COUNT 253 10x3/uL (130-400)
[2019-03-22 20:36] LABS: PRO BNP 14 pg/mL (0-125); TROPONIN-I < 0.017 ng/mL (0.000-0.060)
[2019-03-23 01:00] VITALS: BP 121/81
== END 2019-03-23 02:30 | disposition short-term general hospital (02) ==
LOC: D.ER 18:12
PROVIDERS: Family Medicine
DX: T18.8XXA Foreign body in other parts of alimentary tract, initial encounter (principal); X83.8XXA Intentional self-harm by other specified means, initial encounter; Y93.89 Activity, other specified; Y92.019 Unspecified place in single-family (private) house as the place of occurrence of the external cause

== ENCOUNTER 2019-05-28 03:32 | Emergency (ER) | payer MEDICAID ==
[~2019-05-28] VITALS: Ht 175.3 cm; Wt 95.5 kg
[~2019-05-28 03:32] MED LIST changes: +NORVASC10 MG PO
[2019-05-28 03:38] VITALS: Ht 175.3 cm; Wt 95.5 kg
[2019-05-28] MEDS ORDERED: SEROQUEL400 MG PO (03:41)
[2019-05-28] MEDS ORDERED: PROTONIX40 MG PO (03:42)
[2019-05-28 04:22] LABS: BASOPHILS 0.4 % (0-2); EOSINOPHILS 5.6 % (0-7); HEMATOCRIT 33.3 % (42.0-54.0); HEMOGLOBIN 10.4 g/dL (13.5-17.5); IMMATURE GRANULOCYTES 0.8 % (0-5); LYMPHOCYTES 30.3 % (15-50); MCH 23.7 pg (26.0-34.0); MCHC 31.2 g/dL (31.0-37.0); MEAN PLATELET VOLUME 9.1 fL (7.4-10.4); MONOCYTES 7.1 % (2-11); NEUTROPHILS 55.8 % (40-80); PLATELET COUNT 297 10x3/uL (130-400); RBC 4.38 10x6/uL (4.20-6.10); RDW 14.7 % (11.5-14.5); WBC 7.8 10x3/uL (4.8-10.8)
[2019-05-28 04:35] LABS: ALBUMIN 3.7 g/dL (3.4-5.0); ALKALINE PHOSPHATASE 85 U/L (46-116); ALT (SGPT) 32 U/L (10-68); BILIRUBIN - TOTAL 0.23 mg/dL (0.2-1.3); CALC OSMOLALITY 273 mosm/kg (275-300); CALCIUM 8.5 mg/dL (8.5-10.1); CARBON DIOXIDE 26.6 mmol/L (21.0-32.0); CHLORIDE - SERUM 103 mmol/L (98-107); GLUCOSE 120 mg/dL (74-106); MAGNESIUM - SERUM 1.9 mg/dL (1.8-2.4); POTASSIUM - SERUM 3.7 mmol/L (3.5-5.1); SODIUM 137 mmol/L (136-145); UREA NITROGEN 10 mg/dL (7-18); eGFR NON AFRICAN AMERICAN 82 mL/min (90-120)
[2019-05-28 06:09] VITALS: BP 155/93
== END 2019-05-28 06:18 | disposition other institution (70) ==
LOC: D.ER 03:32
PROVIDERS: Family Medicine
DX: T18.8XXA Foreign body in other parts of alimentary tract, initial encounter (principal); F20.9 Schizophrenia, unspecified